=== PATIENT | male | born 1970 | race American Indian/Alaskan Native ===

== ENCOUNTER 2021-05-13 14:07 | Emergency (ER) | payer SELFPAY ==
[2021-05-13 15:27] VITALS: BP 117/66
--- NOTE | 2021-05-13 16:19 | XRay Report ---
RIGHT HAND 3 VIEWS INDICATION / CLINICAL INFORMATION: Smashed right fifth finger yesterday with a dumbbell. COMPARISON: None available. FINDINGS: BONES / JOINT(S): There is an acute, mildly comminuted fracture involving the base of the terminal tu ft of the distal phalanx of the ring finger. There is wide distraction of the fracture fragments. The re are mild degenerative changes involving multiple metacarpophalangeal joints. SOFT TISSUES: There is significant soft tissue irregularity at the fracture site consistent with an o pen fracture. ADDITIONAL FINDINGS: None. IMPRESSION: Acute, comminuted open fracture of the terminal tuft of the distal phalanx of the right r ing finger. Signer Name: John Wagner MD Signed: 05/13/2021 4:15 PM Workstation Name: [id number]
[2021-05-13] MEDS ORDERED: TETANUS,DIPH,PERTUSS(ACELL) VACCINE 0.5 ML SYRINGE IM ONE (16:55)
--- NOTE | 2021-05-13 16:56 | Emergency Department Report ---
ED Upper Extremity Inj HPI - General Chief Complaint: Extremity Injury, Upper Stated Complaint: RGHT HAND PINKY INJURY Time Seen by Provider: 05/13/21 16:39 Source: patient Mode of arrival: Ambulatory Limitations: No Limitations - History of Present Illness Initial Comments: Chief complaint: "I crushed my finger between 100 pound dumbbell and a 40 pound dumbbell." HPI: This is a healthy 50-year-old male without significant past medical history presents with crush injury of the right little finger on yesterday morning approximately 9 AM. Patient washed and covered the wound. He has severe pain. He took 10 tablets of Advil yesterday due to the pain. No other injury. He is right-handed. He is currently unemployed. He is not a physician. He states that his previous career did not require physical labor and dexterity. Complaint: Injury to:: right, finger -: days(s) (Yesterday morning 9:30 AM) Other Extremity Injury: Fingers: Right (Right fifth digit distal crush injury) Handedness: right Place: other ([facility]) Severity scale (0 -10): 8 Improves With: immobilization (Patient self treated with bulky dressing) Worsens With: movement of extremity, other (Palpation) Treatments Prior to Arrival: bandage - Related Data Previous Rx's Medication Instructions Recorded Last Taken Type HYDROcodone/APAP 5-325 [[place] 1 each PO Q6HR PRN #15 tablet 05/13/21 Unknown Rx 5/325] cephALEXin [Keflex] 500 mg PO TID 7 Days #21 cap 05/13/21 Unknown Rx Allergies Allergy/AdvReac Type Severity Reaction Status Date / Time No Known Allergies Allergy Verified 05/13/21 15:27 ED Review of Systems ROS: Stated complaint: RGHT HAND PINKY INJURY Other details as noted in HPI Constitutional: denies: fever, malaise Neurological: denies: numbness, paresthesias ED Past Medical Hx - Past Medical History Previous Medical History?: No - Social History Smoking Status: Never Smoker - Medications Home Medications: Home Medications Medication Instructions Recorded Confirmed Last Taken Type HYDROcodone/APAP 5-325 [[place] 1 each PO Q6HR PRN #15 tablet 05/13/21 Unknown Rx 5/325] cephALEXin [Keflex] 500 mg PO TID 7 Days #21 cap 05/13/21 Unknown Rx ED Physical Exam - General Limitations: No Limitations General appearance: alert, in no apparent distress - Head Head exam: Present: atraumatic, normocephalic - Respiratory Respiratory exam: Absent: respiratory distress - Expanded Upper Extremity Exam Right Hand Wrist exam: Present: other (Right fifth digit: Nailbed exposed with skin avulsion, mild flexion deformity at the distal phalanx, no bleeding) - Neurological Exam Neurological exam: Present: alert, oriented X3 - Psychiatric Psychiatric exam: Present: normal affect, normal mood ED Course Vital Signs 05/13/21 15:24 Temperature 98 F Pulse Rate 82 Respiratory 14 Rate Blood Pressure 117/66 [Left] O2 Sat by Pulse 100 Oximetry ED Medical Decision Making - Radiology Data Radiology results: report reviewed [facility] [address] [id number] XRay Report Signed Patient: MARLA FERGUSON MR#: [id number] : 1970 Acct:[id number] Age/Sex: 50 / M ADM Date: 05/13/21 Loc: ED Attending Dr: Ordering Physician: RAQUEL COLLINS MD Date of Service: 05/13/21 Procedure(s): XR finger(s) 2+V RT Accession Number(s): [id number] cc: ED MD DENNIS Fluoro Time In Minutes: RIGHT HAND 3 VIEWS INDICATION / CLINICAL INFORMATION: Smashed right fifth finger yesterday with a dumbbell. COMPARISON: None available. FINDINGS: BONES / JOINT(S): There is an acute, mildly comminuted fracture involving the base of the terminal tuft of the distal phalanx of the ring finger. There is wide distraction of the fracture fragments. There are mild degenerative changes involving multiple metacarpophalangeal joints. SOFT TISSUES: There is significant soft tissue irregularity at the fracture site consistent with an open fracture. ADDITIONAL FINDINGS: None. IMPRESSION: Acute, comminuted open fracture of the terminal tuft of the distal phalanx of the right ring finger. Signer Name: Brandy Wagner MD Signed: 05/13/2021 4:15 PM Workstation Name: [id number] Transcribed By: RT Dictated By: Brandy Wagner MD Electronically Authenticated By: Brandy Wagner MD Signed Date/Time: 05/13/211614 DD/ 1612 TD/TT: - Medical Decision Making Open distal phalanx fracture right fifth digit, With nail injury, clean wound. Xeroform dressing applied by nurse. Aluminum foam finger splint was applied to the right fifth digit under my supervision. After application the extremity was neurovascularly intact with acceptable alignment. Referred to orthopedic surgeon: Recommended follow-up within the next 2 days. Prescribed cephalexin prophylactic antibiotics, Tdap provided emergency department. Also prescribed [place]. Critical care attestation.: If time is entered above; I have spent that time in minutes in the direct care of this critically ill patient, excluding procedure time. ED Disposition Clinical Impression: Open fracture of distal phalanx of right little finger, Nailbed injury Disposition: HOME / SELF CARE / HOMELESS Is pt being admited?: No Does the pt Need Aspirin: No Condition: Stable Instructions: Finger Fracture, Adult, Xcax-ht-[id number] Prescriptions: cephALEXin [Keflex] 500 mg PO TID 7 Days #21 cap HYDROcodone/APAP 5-325 [[place] 5/325] 1 each PO Q6HR PRN #15 tablet PRN Reason: Pain Referrals: BRANDY PANDYA MD [Staff Physician] - 2-3 Days
== END 2021-05-13 17:38 | disposition home or self-care (01) ==
LOC: ED 14:07
DX: S62.636B Displaced fracture of distal phalanx of right little finger, initial encounter for open fracture (principal); W22.8XXA Striking against or struck by other objects, initial encounter; Y93.89 Activity, other specified; Y92.89 Other specified places as the place of occurrence of the external cause; Y99.8 Other external cause status
CPT/HCPCS: 99283